=== PATIENT | female | born 1955 | race Caucasian/White ===

== ENCOUNTER → 2021-05-24 14:44 | Outpatient (CLI) | payer OTHER, SELFPAY ==
[2021-05-24 19:33] LABS: COVID19 -Nasal RAPID Negative (Negative)
== END ==
PROVIDERS: Visit Provider Physician Assistant
DX: Z01.812 Encounter for preprocedural laboratory examination (principal); Z20.822 Contact with and (suspected) exposure to COVID-19
CPT/HCPCS: 87635

== ENCOUNTER 2021-05-26 09:28 | Day surgery (SDC) | payer OTHER, SELFPAY ==
--- NOTE | 2021-05-25 19:34 | PM.PREOP ---
Pre-operative Note COVID-19 COVID-19 status: Negative Interval Note History & Physical reviewed/Exam performed by Physician: Yes Changes to H&P: No
--- NOTE | 2021-05-26 08:13 | P.OP_ITS ---
Operative Date/Time/Diagnoses Date of procedure: 05/26/21 Time of procedure: 10:45 Procedure & Clinicians Procedure: Preoperative diagnoses: 1. Right complex surgery with use of capsular dye. 2. Mature or advanced nuclear sclerotic and cortical cataract with poor visibility of the anterior capsule increasing surgical risks of complications. 3. History of retinal surgery with posterior vitrectomy increasing risk of surgery. 4. History of right and left epiretinal membrane Postoperative diagnoses: 1.right Complex surgery with use of capsular dye, 2. Placement of a posterior chamber intraocular lens implant. Surgeon: Linda Salinas MD Complications: none Specimen: None Implant: [id number]+23.0 Blood loss: None Anesthesia: Retrobulbar with monitored standby. Description of procedure: Dictated by: Linda Salinas MD Post operative diagnoses: 1. Right cataract removed with use of capsular dye . 2. Placement of a posterior chamber intraocular lens. Procedure: Phacoemulsification with posterior chamber intraocular lens implant Surgeon: Linda Salinas MD Blood loss: None Anesthesia: Retrobulbar with monitored standby Description of procedure: Patient has presented with decreased vision due to cataract which is affecting activities of daily living especially driving. The patient wants surgery to improve vision. They understand the extra risk of surgery during the COVID-19 epidemic and wished to proceed. The patient has tested negative for active COVID-19 virus within 72 hours of the procedure. She has had a rapid progressing cataract due to posterior vitrectomy with air bubble use for a vitreal macular traction repair. This will increase the risk of complications for this surgery. The patient was taken to the operating room and given IV sedation. A retrobulbar block consisting of 6 cc of 2% xylocaine without epinephrine mixed half and half with 0.5% Marcaine with 1 cc of hyaluronidase added is placed between the medial and lateral 1/3 of the inferior orbital rim. The eye is manually massaged for 30 sec, prepped using Betadine solution, and draped in the usual sterile fashion. Temporal approach was made, a 1 mm side-port incision was performed 90 degrees from the planned corneal wound. Phenylephrine 1.5% mixed with 1% xylocaine 0.2 cc was placed into the anterior chamber. An air bubble was placed and capsular blue dye was placed to improve visibility of the anterior capsule. The dye was irrigated out to reduce bubbles. Endocoat followed by Maryanne was then placed. A 2.6 mm clear incision with a 2.6 mm blade was placed. A 360 degree capsulorrhexis style capsulotomy was then performed with a [facility] by the capsular dye. Hydrodelineation and hydrodissection were performed. The phacoemulsification unit is introduced, and sculpting used to groove the central lens. It is then removed in chopping mode. Epi nucleus is removed with epinuclear mode and irrigation aspiration was used to remove the peripheral cortex. Zonules held intact. posterior capsule is polished. The intraocular lens is selected, inspected, power confirmed, and placed in the posterior chamber. There was a small Desemet's flap at the incisional cornea and it was repositioned with viscoeleastic. The wound was stromally hydrated and tested for leaks, there was none and was left sutureless. Intracameral moxifloxacin 0.1 cc was placed into the anterior chamber. Kenalog 0.2 cc was kip choco in the superior subconjunctival space. A drop of antibiotic and was placed and the eye was patched and shielded. The patient was stable and returned to the recovery room in excellent condition. Dictated by: Linda Salinas MD Copy to: [facility] Same procedure as scheduled: Yes
[2021-05-26] MEDS: PROPARACAINE 0.5% OPHTH SOL 2 DROPS EYE-OP (09:50)
[2021-05-26] MEDS: CATARACT EYE COMPOUND (10 DROPS/SYRINGE) 3 DROPS EYE-OP (09:51)
[2021-05-26 09:54] VITALS: BP 137/73; PULSE 60; RESP 16; TEMP 36.4; O2SAT 98; BMI 25.0
--- NOTE | 2021-05-26 10:19 | SUR.OPER ---
Supine on eye stretcher, head on extension cradle secured with tape. Arms tucked at sides with blanket. Pillow under knees.
[2021-05-26] MEDS: HYALURONATE SODIUM 30 MG-10 MG/ML SYRINGES 1 BOX INTRAOCULA (11:06)
[2021-05-26] MEDS: PHENYLEPHRINE/LIDOCAINE VIAL (OR) 0.2 ML EYE-OP (11:06)
[2021-05-26] MEDS: TRIAMCINOLONE 50 MG/5 ML VIAL INJ (11:07)
[2021-05-26] MEDS: MOXIFLOXACIN INJ 4 MG/0.8 ML VIAL 0.5 MG EYE-OP (11:07)
[2021-05-26] MEDS: LIDOCAINE 2% 4 ML, BUPIVACAINE 0.5% (PF) 4 ML, HYALURONIDASE 150 UNIT INJ (11:08)
[2021-05-26] MEDS: BALANCED SALT IRRIG SOLN NO.2 500 ML, EPINEPHrine 1 MG IRR (11:08)
[2021-05-26] MEDS: ERYTHROMYCIN OPHTH 1 GM OINT 1 APPLIC EYE-RIGHT (11:09)
[2021-05-26] MEDS: TRYPAN BLUE 0.5 ML SYRINGE INJ (11:09)
[2021-05-26 11:34] VITALS: BP 152/75; PULSE 48; RESP 16; TEMP 36.6; O2SAT 100
[2021-05-26 11:44] VITALS: BP 155/76; PULSE 46; RESP 16; O2SAT 100
== END 2021-05-26 11:59 | disposition home or self-care (01) ==
PROVIDERS: Referring Provider Ophthalmology; Visit Provider Ophthalmology
PROC: (CPT 66984; principal; 2021-05-26 10:45)
DX: H25.811 Combined forms of age-related cataract, right eye (principal)
CPT/HCPCS: 66984; J0171; J3301; J3470

== ENCOUNTER → 2021-08-13 19:38 | Outpatient (CLI) | payer OTHER, SELFPAY ==
--- NOTE | 2021-08-13 19:40 | DI.RAD.S_ITS ---
PROCEDURE: XR WRIST LT MIN 3V INDICATIONS: L wrist injury TECHNIQUE: 3 views of the wrist were acquired. COMPARISON: None. FINDINGS: Bones: Bony fragment over dorsal aspect of proximal carpal bones are seen possibly represent age indeterminate injury involving dorsal aspect of triquetrum. Cortical irregularity involving dorsal aspect of ulnar bone is also noted suggestive of nondisplaced fracture in this area. No suspicious bony lesions. Scaphoid view: Scaphoid is grossly intact. Soft tissues: No suspicious soft tissue calcifications. IMPRESSION: Finding is suggestive of nondisplaced fracture involving dorsal aspect of distal ulnar and age indeterminate injury involving dorsal aspect of triquetrum. Dictated by: Ariel Aguiar M.D. on 08/13/2021 at 19:56 Approved by: Ariel Aguiar M.D. on 08/13/2021 at 19:57
--- NOTE | 2021-08-13 19:40 | DI.RAD.S_ITS ---
PROCEDURE: XR FOREARM LT 2V INDICATIONS: L wrist injury pain on ulnar aspect TECHNIQUE: 2 views of the forearm were acquired. COMPARISON: None. FINDINGS: Bones: No gross acute radial or ulnar fracture is seen. Small calcification over dorsal aspect of proximal carpal bones which may represent and age indeterminate injury involving dorsal aspect of triquetrum. No suspicious bony lesions. Soft tissues: No suspicious soft tissue calcifications or masses. IMPRESSION: No forearm fracture or dislocation. Age indeterminate fracture involving dorsal aspect of proximal carpal bone possibly triquetrum. Dictated by: Ariel Aguiar M.D. on 08/13/2021 at 19:54 Approved by: Ariel Aguiar M.D. on 08/13/2021 at 19:55
== END ==
PROVIDERS: Referring Provider Physician Assistant; Visit Provider Physician Assistant
DX: S69.92XA Unspecified injury of left wrist, hand and finger(s), initial encounter (principal); X58.XXXA Exposure to other specified factors, initial encounter
CPT/HCPCS: 73090; 73110

== ENCOUNTER → 2022-07-05 11:16 | Outpatient (CLI) | payer OTHER, SELFPAY ==
--- NOTE | 2022-07-05 | DI.RAD.S_ITS ---
PROCEDURE: FL WRIST INJECTION MR/CT LT INDICATIONS: Other specified sprain of left wrist COMPARISON: None. TECHNIQUE: After informed consent had been obtained, the wrist was examined fluoroscopically, and a site chosen for injection of the radiocarpal compartment from a dorsal approach. Skin was prepped and draped in a sterile fashion and 1% lidocaine infiltrated from the skin down to the articular surface. A hypodermic needle was then introduced into the articular space and a modest amount of contrast medium was instilled confirming intra-articular needle tip placement. This was followed by approximately 5 mL of a dilute gadolinium solution. Needle was removed and dressing was applied. The patient experienced no complications throughout the procedure and left the fluoroscopic suite in no apparent distress. FINDINGS: A single fluoroscopic spot image demonstrates intra-articular location to injected iodinated contrast. IMPRESSION: Successful fluoroscopic-guided administration of dilute Gadolinium solution for wrist MR arthrogram. Dictated by: Oleksandr Sun M.D. on 07/05/2022 at 13:24 Approved by: Oleksandr Sun M.D. on 07/05/2022 at 13:25
--- NOTE | 2022-07-05 | DI.MRI.S_ITS ---
PROCEDURE: MR WRIST LT W CON INDICATIONS: Other specified sprain of left wrist TECHNIQUE: After the administration of 3-4 mL of dilute intra-articular Gadolinium contrast into the radiocarpal compartment, coronal T1 spin echo with fat saturation and T2 fast spin echo with fat saturation, axial T1 spin echo and T2 fast spin echo with fat saturation, sagittal T1 spin echo with and without fat saturation through the wrist. COMPARISON: [facility], CR, XR WRIST 3+ VIEWS LEFT, 06/27/2022, 10:03. FINDINGS: Image quality: Excellent. Bones and cartilage: Osteoarthritic changes are noted throughout wrist joints. Subcortical cystic areas are seen involving distal ulnar and ulnar and proximal portion of lunate with surrounding edema concerning for osteochondral injuries. No acute fracture or dislocation. No evidence of avascular necrosis. Carpal ligaments: There is full-thickness perforation involving dorsal and central components of scapholunate ligament with gadolinium extravasation into the mid-carpal compartment. No significant widening of scapholunate interval is seen. The lunotriquetral ligament is intact. The radioscaphocapitate and radiolunotriquetral ligaments appear intact. The arcuate ligament and short radiolunate ligament also appear normal. The dorsal intercarpal and radiotriquetral ligaments appear intact. On sagittal images, the pisohamate ligament appears intact. Triangular fibrocartilage complex: There is triangular fibrocartilage tear near its radial insertion with gadolinium extravasation into the distal radioulnar joint. The adjacent meniscal homolog appears normal. The ulnar collateral ligament appears intact. The extensor carpi ulnaris tendon is thickened with intrasubstance T2 hyperintense signal at the level of ulnar styloid. Tendons and soft tissues: The carpal tunnel structures appear normal, including the median nerve. The ulnar nerve appears normal within Guyon's canal. All six extensor tendon compartments demonstrate normal morphology, without pathologic tendon sheath fluid. No soft tissue ganglion cysts. IMPRESSION: 1. Perforation involving dorsal and central component of scapholunate ligament with contrast extravasating into mid-carpal compartment. The lunotriquetral ligament is intact. 2. Triangular fibrocartilage tear near its radial insertion with contrast extravasating into distal radial ulnar joint. 3. 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 No fracture or dislocation. No evidence of avascular necrosis. 4. Tendinosis and low-grade intrasubstance partial-thickness tear involving extensor carpi ulnaris tendon at the level of ulnar styloid. No other wrist tendon pathology is seen. Dictated by: Ariel Aguiar M.D. on 07/05/2022 at 20:16 Approved by: Ariel Aguiar M.D. on 07/05/2022 at 20:21
== END ==
PROVIDERS: Referring Provider Orthopaedic Surgery; Visit Provider Orthopaedic Surgery
DX: S63.592A Other specified sprain of left wrist, initial encounter (principal); M19.032 Primary osteoarthritis, left wrist; X58.XXXA Exposure to other specified factors, initial encounter
CPT/HCPCS: 20605; 73222; 76000; A9579